=== PATIENT | female | born 1955 | race Caucasian/White ===

== ENCOUNTER 2023-09-17 15:25 | Emergency (ER) | payer OTHER ==
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
[2023-09-17 18:10] VITALS: BP 130/88; O2SAT 100
== END 2023-09-17 18:05 | disposition home or self-care (01) ==
LOC: ED 15:25
DX: S01.21XA Laceration without foreign body of nose, initial encounter (principal); S01.511A Laceration without foreign body of lip, initial encounter; S02.5XXA Fracture of tooth (traumatic), initial encounter for closed fracture; V19.3XXA Pedal cyclist (driver) (passenger) injured in unspecified nontraffic accident, initial encounter; Y93.55 Activity, bike riding; I10 Essential (primary) hypertension
CPT/HCPCS: 12015; 99284